=== PATIENT | female | born 1950 | race Caucasian/White ===

== ENCOUNTER 2023-11-27 07:33 | Emergency (ER) | payer MEDICARE, SELFPAY ==
[2023-11-27 07:34] VITALS: BMI 37.9
[2023-11-27 07:35] VITALS: BP 190/110
--- NOTE | 2023-11-27 07:57 | ED.MUSCINJ ---
HPI-Injury
General
Chief Complaint: Musculo-Skeletal Complaint
Source: patient
Exam Limitations: none
Time Seen by Provider: 11/27/23 07:40
Nursing documentation reviewed up to this point in time: agreed with
Travel History
Have you had any contact with someone who has COVID-19?: No
Do you have any symptoms of coronavirus? Fever > 100 degrees, chills, cough, shortness of breath, sore throat, loss of taste or smell, muscle aches, or headache?: No
History of Present Illness-Injury
Is this injury a work related problem?: No
Is pt an associate of [facility]?: No
Initial Injury comments:
73-year-old female with known knee arthritis treated with injections at [facility] had a fall earlier this year on a cruise injured her left knee since then has been bothering her doing some light housework yesterday knee started hurting heard a crack,
no direct trauma she is requesting an MRI, she has a prescription for meloxicam has not been using it concerned about the side effects no fevers no rash no open wounds
Past History
Past History
ED Past Medical History: Hypothyroidism
ED Past Surgical History: Other (gastric sx)
Social History
Tobacco: Non-smoker
Alcohol: None
Drug: None
Personal:
Living: with family
Review of Systems
Review of Systems
All Other Systems: Not applicable
Constitutional: Denies fever
EENT: Reports no symptoms
Respiratory: Reports no symptoms
Cardiac: Reports no symptoms
ABD/GI: Reports no symptoms
Musculoskeletal: Reports joint pain
Phy Exam
Physical Exam
Physical Exam:
Physical Exam
General: no apparent distress, not acutely ill
Neck: No joint
Heart: Regular
Lungs: no acute respiratory distress.
Neuro: alert and oriented. no focal neurological deficits
Skin: no rash
Psychiatric: well kept. interactive and cooperative
Extremities: Right knee mild clinical flexion left knee effusion mild pain with flexion no warmth no crepitus
Injury Course
Orders/Labs/Results
Orders:
Orders
11/27/23 07:40
Knee, Left 4 or More Views [CR Knee - Left 4 Or More View*] Urgent
Comment:
Reason For Exam: pain
11/27/23 07:52
Alberto Wrap Left-Treatment ONCE
Acetaminophen [Tylenol] 650 mg PO NOW STA
Procedures
Splint Check
Splint checked by provider?: Yes
Circulation/Movement/Sensation post splint application: brisk cap refill
Splinting/Sling Placement
Left Knee:
Procedure completed by: rn
Pre-splint extermity exam: neurovascular intact
Type of splint: alberto wrap
Splint checked by provider?: Yes
Normal distal neurovascular exam?: Yes
MDM/Problems Addressed
Differential Diagnosis Includes:
Arthritis ligamentous injury occult fracture gouty arthritis no signs of infection
MDM/Problems Addressed:
Knee pain
Chronic conditions affecting care:
Arthritis obesity
Acute Exacerbation and/or Progression of Chronic Illness:
Arthritis
*Radiology
Radiology exam reviewed: preliminary read by ED provider
*Pulse Oximetry
Patient hypoxic: no
*Critical Care Note
Total Time (30-74mins, 75-104mins- exclusive of procedures): Not Applicable
Update Note
Update Note:
I see no indication for MRI, will check x-ray analgesia Alberto wrap for comfort orthopedic/PCP follow-up
X-ray noted
ED Attending Note
-
Portions of this chart may have been created with voice recognition software.� Occasional wrong word or��sound alike� substitutions may have occurred due to the inherent limitations of voice recognition software.
Discharge Plan
Departure
Patient Disposition: Home (Routine Discharge)
Date of Disposition: 11/27/23
Time of Disposition: 08:36
Patient with high blood pressure during this ER visit?: No
Condition: Good
Covid-19: Not Applicable
Discharge Problem:
Acute knee pain
Instructions: Knee Pain (DC)
Prescriptions:
No Action
multivitamin [One Daily Multivitamin] 1 EACH tablet
1 ea PO DAILY
cyanocobalamin (vitamin B-12) 1,000 MCG tablet
500 mcg PO DAILY
ascorbic acid (vitamin C) [Vitamin C] 500 MG tablet
1,000 mg PO DAILY
fiber [Fiber Off] 1 EACH tablet
1 tab PO QPM
levothyroxine 112 MCG tablet
112 mcg PO DAILY
cholecalciferol (vitamin D3) 2,000 UNITS tablet
2,000 units PO QPM
Referrals:
Sissy Esquivel CRNP [Family Provider] -
Indra Paz MD [Active] - Next open appointment
Activity Restrictions/Additional Instructions:
Rest Tylenol every 4-6 hours for pain
You can use the meloxicam as previously prescribed--- take it on a full stomach
Call orthopedics to arrange follow-up care
Interventions
Interventions:
*Risk Screen - Suicide Last Done: 11/27/23 08:18
*General Assessment Last Done: 11/27/23 08:18
*Neglect/Abuse Screening Last Done: 11/27/23 08:18
*ED COVID-19 Vaccine History Last Done: 11/27/23 07:35
ED-Musculoskeletal Assessment Last Done: 11/27/23 08:19
[2023-11-27] MEDS: TYLENOL 650 MG PO (08:15)
[2023-11-27 08:20] VITALS: BP 158/90
== END 2023-11-27 09:06 | disposition home or self-care (01) ==
LOC: EMR 07:33
PROVIDERS: EMERGENCY PHYSICIAN Emergency Medicine; FAMILY PHYSICIAN Nurse Practitioner
DX: M25.562 Pain in left knee (principal)
CPT/HCPCS: 99283; 73564

== ENCOUNTER → 2025-02-11 12:49 | Outpatient (REF) | payer MEDICARE, SELFPAY | LOC: RAD 12:49 | PROVIDERS: ATTENDING PHYSICIAN Nurse Practitioner | DX: E78.2 Mixed hyperlipidemia (principal) | CPT/HCPCS: 75571 ==

== ENCOUNTER → 2025-03-08 07:53 | Outpatient (REF) | payer MEDICARE, SELFPAY | LOC: RAD 07:53 | PROVIDERS: ATTENDING PHYSICIAN Nurse Practitioner | DX: Z78.0 Asymptomatic menopausal state (principal) | CPT/HCPCS: 77080 ==

== ENCOUNTER 2025-03-25 06:28 | Day surgery (SDC) | payer MEDICARE, SELFPAY | END 2025-03-25 10:48 | disposition home or self-care (01) | LOC: GI 06:28 | PROVIDERS: ATTENDING PHYSICIAN Internal Medicine Gastroenterology; FAMILY PHYSICIAN Nurse Practitioner | DX: Z12.11 Encounter for screening for malignant neoplasm of colon (principal); K64.0 First degree hemorrhoids; K57.30 Diverticulosis of large intestine without perforation or abscess without bleeding; D12.3 Benign neoplasm of transverse colon; D12.4 Benign neoplasm of descending colon; D12.0 Benign neoplasm of cecum; D12.5 Benign neoplasm of sigmoid colon; Z80.0 Family history of malignant neoplasm of digestive organs | CPT/HCPCS: 45385; 45380; 88305 ==

== ENCOUNTER → 2025-05-06 11:20 | Outpatient (REF) | payer MEDICARE, SELFPAY | LOC: RAD 11:20 | PROVIDERS: ATTENDING PHYSICIAN Nurse Practitioner; OTHER PHYSICIAN Orthopaedic Surgery Adult Reconstructive Orthopaedic Surgery | DX: M25.561 Pain in right knee (principal); M25.562 Pain in left knee; W19.XXXA Unspecified fall, initial encounter | CPT/HCPCS: 73564 ==

== ENCOUNTER → 2025-08-15 08:42 | Outpatient (REF) | payer MEDICARE, SELFPAY | LOC: RAD 08:42 | PROVIDERS: ATTENDING PHYSICIAN Nurse Practitioner | DX: R91.1 Solitary pulmonary nodule (principal) | CPT/HCPCS: 71260; Q9967 ==